=== PATIENT | female | born 1990 | race Caucasian/White ===

== ENCOUNTER 2021-06-19 06:59 | Inpatient (IN) | payer OTHER ==
[2021-06-19] MEDS ORDERED: fentaNYL 100 MCG/2 ML SDV EPIDUR PRN (08:00)
[2021-06-19] MEDS ORDERED: diphenhydrAMINE 50 MG/ML SDV IVPUSH PRN ×3 (08:00→14:33)
[2021-06-19] MEDS ORDERED: ePHEDrine 50 MG/ML SDV IVPUSH PRN ×2 (08:00→14:33)
[2021-06-19] MEDS ORDERED: Bupivacaine/fentaNYL/NS 100 ML Bag EPIDUR PRN (08:00)
--- NOTE | 2021-06-19 08:07 | PCM.PREANE ---
Preanesthetic Assessment - Procedure Proposed Procedure: epidural placement for labor analgesia - Anesthesia/Transfusion/Family Hx Anesthesia History: No Prior Anesthesia Family History of Anesthesia Reaction: No Transfusion History: No Prior Transfusion(s) Intubation History: Unknown - Review of Systems General: No Symptoms Pulmonary: No Symptoms Cardiovascular: No Symptoms Gastrointestinal: Other (heartburn complaints with , not on medications, she experineces when laying flat after a meal ) Neurological: No Symptoms, Other (swellling in left leg, varicose veins , swollen L.R, OB is aware, did an ultrasound in [place] that was negative and no change in the swelling or symptomology since that time ) Other: Reports: None - Physical Assessment NPO Status Date: 06/19/21 NPO Status Time: 06:30 Vital Signs: 76 hr 96% spo2 20 RR 115/68 Height: 1.78 m Weight: 92.986 kg ASA Class: 2 Mental Status: Alert & Oriented x3 Airway Class: Mallampati = 1 Dentition: Reports: Normal Dentition, Implants Thyro-Mental Finger Breadths: 3 Mouth Opening Finger Breadths: 5 ROM/Head Extension: Full Lungs: Clear to Auscultation, Normal Respiratory Effort Cardiovascular: Regular Rate, Regular Rhythm - Blood Blood Available: Yes Product(s) Available: PRBC (type and screen to be drawn ) - Acknowledgements Anesthesia Type Planned: Epidural Pt an Appropriate Candidate for the Planned Anesthesia: Yes Alternatives and Risks of Anesthesia Discussed w Pt/Guardian: Yes Pt/Guardian Understands and Agrees with Anesthesia Plan: Yes PreAnesthesia Questionnaire - CURRENT (IN HOUSE) MEDS Current Meds: Current Medications Diphenhydramine HCl (Diphenhydramine 50 Mg/Ml Sdv) 25 mg IVPUSH Q6H PRN PRN Reason: pruritis Ephedrine Sulfate (Ephedrine 50 Mg/Ml Sdv) 5 mg IVPUSH ASDIRECTED PRN PRN Reason: Hypotension Fentanyl (Fentanyl 100 Mcg/2 Ml Sdv) 100 mcg EPIDUR Q3H PRN PRN Reason: Pain Fentanyl/Bupivacaine HCl (Bupivacaine/Fentanyl/Ns 100 Ml Bag) 100 ml EPIDUR ASDIRECTED PRN PRN Reason: Pain
[2021-06-19] MEDS ORDERED: Lactated Ringers 1,000 ML IV SCH (09:30)
[2021-06-19] MEDS ORDERED: Ondansetron 4 MG/2 ML SDV IVPUSH PRN ×2 (09:39→16:34)
[2021-06-19] MEDS ORDERED: Morphine PF 10 MG/10 ML SDV ONE (09:41)
[2021-06-19] MEDS ORDERED: ceFAZolin 1 GM Vial ONE (09:42)
[2021-06-19] MEDS ORDERED: Lactated Ringers 1,000 ML ONE ×2 (09:47)
[2021-06-19] MEDS ORDERED: Oxytocin 10 Units/1 ML SDV ONE (09:47)
[2021-06-19] MEDS ORDERED: Ketorolac 30 MG/ML SDV ONE (09:47)
[2021-06-19] MEDS ORDERED: Ondansetron 4 MG/2 ML SDV ONE (09:47)
[2021-06-19] MEDS ORDERED: Bupivacaine 0.5% 30 ML SDV ONE (11:08)
[2021-06-19] MEDS ORDERED: Citric Acid/Sodium Citrate Solution 30 ML Cup PO ONE (11:30)
[2021-06-19] MEDS ORDERED: Metoclopramide 10 MG/2 ML SDV IVPUSH ONE (11:30)
[2021-06-19] MEDS ORDERED: Oxytocin/Lactated Ringers 10 UNIT/1,000 ML BAG IV SCH (12:00)
[2021-06-19] MEDS ORDERED: ceFAZolin 2 GM in Premix Bag 1 BAG IV ONE (12:00)
--- NOTE | 2021-06-19 12:57 | PCM.POSTAN ---
POST ANESTHESIA ASSESSMENT - MENTAL STATUS Mental Status: Alert - VITAL SIGNS Vital Signs: Last Vital Signs 1247 103/54 73 hr 16rr 98% on RA 97.1 Temp 36.6 C 06/19/21 09:21 Pulse Resp 14 06/19/21 09:21 BP 115/68 06/19/21 09:21 Pulse Ox 99 06/19/21 09:21 - RESPIRATORY Respiratory Status: Respiratory Rate WNL, Airway Patent, O2 Saturation Stable - CARDIOVASCULAR CV Status: Pulse Rate WNL, Blood Pressure Stable - GASTROINTESTINAL GI Status: No Symptoms - PAIN Pain Score: 0 - POST OP HYDRATION Hydration Status: Adequate & Stable
--- NOTE | 2021-06-19 13:00 | PCM.OPNOTE ---
- General Post-Op/Procedure Note Date of Surgery/Procedure: 06/19/21 Operative Procedure(s): primary Findings: viable female, 8/9 apgars at 1215. Breech. Pre Op Diagnosis: breech Post-Op Diagnosis: Same Anesthesia Technique: Spinal Primary Surgeon: Amy Freed Fluid Replacement, Intraop: 1,500 Output, Urine Amount: 100 EBL in mLs: 600 Complications: None Condition: Good Free Text/Narrative:: The patient was taken to the operating room where spinal anesthesia was dosed to surgical levels without difficulty. The patient was prepped and draped in the usual sterile fashion in the dorsal supine position with a leftward tilt. A Pfannenstiel skin incision was made with the scalpel and carried through to the underlying layer of fascia. The fascia was incised in the midline and extended laterally using Rodriguez scissors. Naomy clamps were used to elevate the superior aspect of the fascial incision, which was elevated, and the underlying rectus muscles were dissected off bluntly and using Rodriguez scissors. Attention was then turned to the inferior aspect of the fascial incision, which in similar fashion was grasped with Naomy clamps, elevated, and the underlying rectus muscles were dissected off bluntly and using the rodriguez. The rectus muscles were dissected in the midline. The peritoneum was entered bluntly; this incision was extended superiorly and inferiorly with good visualization of the bladder. The bladder blade was inserted. The vesicouterine peritoneum was identified and entered sharply using Metzenbaum scissors. This incision was extended laterally and the bladder flap was created digitally. The bladder blade was reinserted. The lower uterine segment was incised in a transverse fashion using the scalpel and with digital traction. Clear fluid was noted. The infant was subsequently delivered by normal breech maneuvers. The cord was clamped and cut. The was subsequently handed to the awaiting char puller whose presence had been requested.. The placenta was delivered spontaneously intact with a three-vessel cord noted. The uterus was exteriorized and cleared of all clots and debris. The uterine incision was repaired in 2 layers using 0 monocryl. Hemostasis was visualized. Hemostasis was visualized bilaterally. The uterus was returned to the abdomen. The uterine incision was reexamined and it was noted to be hemostatic. The pelvis was copiously irrigated. The fascia was closed with 1 PDS suture, and the skin was closed with 3-0 monocryl. Sponge, lap, and instrument counts were correct x2. The patient was stable at the completion of the procedure and was subsequently transferred to the recovery room in stable condition.
[2021-06-19] MEDS ORDERED: Naloxone 0.4 MG/ML SDV IVPUSH PRN (14:33)
[2021-06-19] MEDS ORDERED: Acetaminophen/oxyCODONE 325-5 MG Tab PO PRN (14:33)
[2021-06-19] MEDS ORDERED: Dextrose 5%-Lactated Ringers 1,000 ML IV SCH (14:33)
[2021-06-19] MEDS: Ketorolac 30 MG/ML SDV IVPUSH SCH (17:11)
[2021-06-19] MEDS ORDERED: Sodium Chloride 0.9% 10 ML Syringe FLUSH SCH (21:00)
[2021-06-19] MEDS: Acetaminophen/oxyCODONE 325-5 MG Tab PO PRN (21:35)
[2021-06-20] MEDS: Ketorolac 30 MG/ML SDV IVPUSH SCH ×2 (00:23→07:25)
[2021-06-20] MEDS: Acetaminophen/oxyCODONE 325-5 MG Tab PO PRN ×2 (05:04→12:40)
--- NOTE | 2021-06-20 07:21 | PCM.PNPP ---
- General Info Date of Service: 06/20/21 Functional Status: Reports: Pain Controlled - Review of Systems General: Reports: No Symptoms HEENT: Reports: No Symptoms Pulmonary: Reports: No Symptoms Cardiovascular: Reports: No Symptoms Gastrointestinal: Reports: No Symptoms Genitourinary: Reports: No Symptoms Musculoskeletal: Reports: No Symptoms Skin: Reports: No Symptoms Neurological: Reports: No Symptoms Psychiatric: Reports: No Symptoms - Patient Data Vital Signs - Most Recent: Last Vital Signs Temp 37.0 C 06/20/21 03:24 Pulse 66 06/20/21 03:24 Resp 16 06/20/21 04:53 BP 96/51 L 06/20/21 03:24 Pulse Ox 99 06/20/21 04:53 Weight - Most Recent: 92.986 kg I&O - Last 24 Hours: Intake & Output 06/19/21 06/20/21 06/20/21 22:59 06:59 14:59 Intake Total 1500 Output Total 1075 1750 Balance 425 -1750 Lab Results - Last 24 Hours: Laboratory Results - last 24 hr 06/19/21 06/19/21 06/19/21 Range/Units 08:00 09:37 09:37 WBC (3.98-10.04) K/mm3 RBC (3.98-5.22) M/mm3 Hgb (11.2-15.7) gm/dl Hct (34.1-44.9) % MCV (79.4-94.8) fl MCH (25.6-32.2) pg MCHC (32.2-35.5) g/dl RDW Std Deviation (36.4-46.3) fL Plt Count (182-369) K/mm3 MPV (9.4-12.3) fl Neut % (Auto) (34.0-71.1) % Lymph % (Auto) (19.3-51.7) % Fa[place]ner % (Auto) (4.7-12.5) % Eos % (Auto) (0.7-5.8) Baso % (Auto) (0.1-1.2) % Neut # (Auto) (1.56-6.13) K/mm3 Lymph # (Auto) (1.18-3.74) K/mm3 [place] # (Auto) (0.24-0.36) K/mm3 Eos # (Auto) (0.04-0.36) K/mm3 Baso # (Auto) (0.01-0.08) K/mm3 RPR Non-reactive (NONREACTIVE) SARS-CoV-2 RNA (VALENTÍN) Negative (NEGATIVE) Blood Type AB POSITIVE Gel Antibody Screen Negative 06/19/21 06/20/21 Range/Units 09:37 06:30 WBC 8.61 9.00 (3.98-10.04) K/mm3 RBC 3.70 L 3.09 L (3.98-5.22) M/mm3 Hgb 11.9 9.8 L D (11.2-15.7) gm/dl Hct 35.8 30.2 L (34.1-44.9) % MCV 96.8 H 97.7 H (79.4-94.8) fl MCH 32.2 31.7 (25.6-32.2) pg MCHC 33.2 32.5 (32.2-35.5) g/dl RDW Std Deviation 44.5 44.2 (36.4-46.3) fL Plt Count 265 268 (182-369) K/mm3 MPV 8.8 L 8.6 L (9.4-12.3) fl Neut % (Auto) 68.0 74.0 H (34.0-71.1) % Lymph % (Auto) 19.7 14.2 L (19.3-51.7) % [place] % (Auto) 9.5 9.3 (4.7-12.5) % Eos % (Auto) 2.3 2.1 (0.7-5.8) Baso % (Auto) 0.2 0.2 (0.1-1.2) % Neut # (Auto) 5.84 6.65 H (1.56-6.13) K/mm3 Lymph # (Auto) 1.70 1.28 (1.18-3.74) K/mm3 [place] # (Auto) 0.82 H 0.84 H (0.24-0.36) K/mm3 Eos # (Auto) 0.20 0.19 (0.04-0.36) K/mm3 Baso # (Auto) 0.02 0.02 (0.01-0.08) K/mm3 RPR (NONREACTIVE) SARS-CoV-2 RNA (VALENTÍN) (NEGATIVE) Blood Type Gel Antibody Screen Med Orders - Current: Current Medications Diphenhydramine HCl (Diphenhydramine 50 Mg/Ml Sdv) 25 mg IVPUSH Q6H PRN PRN Reason: Itching or Nausea Ephedrine Sulfate (Ephedrine 50 Mg/Ml Sdv) 5 mg IVPUSH SEECOMMENT PRN PRN Reason: Other Ibuprofen (Ibuprofen 600 Mg Tab) 600 mg PO Q6H PRN PRN Reason: mild pain or fever Naloxone HCl (Naloxone 0.4 Mg/Ml Sdv) 0.1 mg IVPUSH SEECOMMENT PRN PRN Reason: Respiratory Depression Ondansetron HCl (Ondansetron 4 Mg/2 Ml Sdv) 4 mg IVPUSH Q4HR PRN PRN Reason: Nausea/Vomiting Last Admin: 06/19/21 17:11 Dose: 4 mg Documented by: Oxycodone/Acetaminophen (Acetaminophen/Oxycodone 325-5 Mg Tab) 1 tab PO Q4H PRN PRN Reason: Pain (moderate 4-6) Last Admin: 06/20/21 05:04 Dose: 1 tab Documented by: Oxycodone/Acetaminophen (Acetaminophen/Oxycodone 325-5 Mg Tab) 2 tab PO Q4H PRN PRN Reason: Pain (severe 7-10) Discontinued Medications Bupivacaine HCl (Bupivacaine 0.5% 30 Ml Sdv) Confirm Administered Dose 30 ml .ROUTE .STK-MED ONE Stop: 06/19/21 11:09 Last Admin: 06/19/21 12:11 Dose: 17 ml Documented by: Cefazolin Sodium (Cefazolin 1 Gm Vial) Confirm Administered Dose 2 gm .ROUTE .STK-MED ONE Stop: 06/19/21 09:43 Citric Acid/Sodium Citrate (Citric Acid/Sodium Citrate Solution 30 Ml Cup) 30 ml PO ONETIME ONE Stop: 06/19/21 11:31 Last Admin: 06/19/21 11:18 Dose: 30 ml Documented by: Diphenhydramine HCl (Diphenhydramine 50 Mg/Ml Sdv) 25 mg IVPUSH Q6H PRN PRN Reason: pruritis Diphenhydramine HCl (Diphenhydramine 50 Mg/Ml Sdv) 25 mg IVPUSH Q6H PRN PRN Reason: Pruritis Ephedrine Sulfate (Ephedrine 50 Mg/Ml Sdv) 5 mg IVPUSH ASDIRECTED PRN PRN Reason: Hypotension Fentanyl (Fentanyl 100 Mcg/2 Ml Sdv) 100 mcg EPIDUR Q3H PRN PRN Reason: Pain Fentanyl/Bupivacaine HCl (Bupivacaine/Fentanyl/Ns 100 Ml Bag) 100 ml EPIDUR ASDIRECTED PRN PRN Reason: Pain Lactated Ringer's (Ringers, Lactated) 1,000 mls @ 125 mls/hr IV ASDIRECTED [facility] Last Admin: 06/19/21 11:18 Dose: 125 mls/hr Documented by: Oxytocin/Lactated Ringer's (Pitocin In Lr 10 Units/1,000 Ml) 10 unit in 1,000 mls @ 100 mls/hr IV ASDIRECTED [facility]; Protocol Cefazolin Sodium/Dextrose 2 gm (/ Premix) 50 mls @ 100 mls/hr IV ONETIME ONE Stop: 06/19/21 12:29 Last Admin: 06/19/21 19:13 Dose: Not Given Documented by: Lactated Ringer's (Ringers, Lactated) Confirm Administered Dose 1,000 mls @ as directed .ROUTE .STK-MED ONE Stop: 06/19/21 09:48 Lactated Ringer's (Ringers, Lactated) Confirm Administered Dose 1,000 mls @ as directed .ROUTE .STK-MED ONE Stop: 06/19/21 09:48 Dextrose/Lactated Ringer's (Dextrose 5%-Lactated Ringers) 1,000 mls @ 125 mls/hr IV ASDIRECTED [facility] Stop: 06/19/21 22:32 Last Admin: 06/19/21 17:22 Dose: 125 mls/hr Documented by: Ketorolac Tromethamine (Ketorolac 30 Mg/Ml Sdv) Confirm Administered Dose 30 mg .ROUTE .STK-MED ONE Stop: 06/19/21 09:48 Ketorolac Tromethamine (Ketorolac 30 Mg/Ml Sdv) 30 mg IVPUSH Q6H [facility] Stop: 06/20/21 06:01 Last Admin: 06/20/21 00:23 Dose: Not Given Documented by: Metoclopramide HCl (Metoclopramide 10 Mg/2 Ml Sdv) 10 mg IVPUSH ONETIME ONE Stop: 06/19/21 11:31 Last Admin: 06/19/21 11:19 Dose: 10 mg Documented by: Miscellaneous Medication (Phenylephrine Hcl In 0.9% Nacl 1 Mg/10 Ml Syringe) Confirm Administered Dose 1 mg .ROUTE .STK-MED ONE Stop: 06/19/21 12:06 Morphine Sulfate (Morphine Pf 10 Mg/10 Ml Sdv) Confirm Administered Dose 10 mg .ROUTE .STK-MED ONE Stop: 06/19/21 09:42 Ondansetron HCl (Ondansetron 4 Mg/2 Ml Sdv) 4 mg IVPUSH ONETIME PRN PRN Reason: Nausea/Vomiting Ondansetron HCl (Ondansetron 4 Mg/2 Ml Sdv) Confirm Administered Dose 4 mg .ROUTE .STK-MED ONE Stop: 06/19/21 09:48 Oxytocin (Oxytocin 10 Units/1 Ml Sdv) Confirm Administered Dose 10 unit .ROUTE .STK-MED ONE Stop: 06/19/21 09:48 Sodium Chloride (Sodium Chloride 0.9% 10 Ml Syringe) 10 ml FLUSH 0900,2100 ERIK - Infant Interaction Disposition, : at Bedside Support Person: - Recovery Exam Fundal Tone: Firm Fundal Level: 1 Fingerbreadths Below Umbilicus Fundal Placement: Midline Lochia Amount: Scant Lochia Color: Rubra/Red Perineum Description: Intact, Minimal Bruising/Swelling Episiotomy/Laceration: None Bladder Status: Indwelling Catheter in Place Urinary Elimination: Indwelling Catheter - Exam General: Alert, Oriented HEENT: Pupils Equal Neck: Supple Lungs: Clear to Auscultation, Normal Respiratory Effort Cardiovascular: Regular Rate, Regular Rhythm GI/Abdominal Exam: Normal Bowel Sounds, Soft, Non-Tender, No Organomegaly, No Distention, No Abnormal Bruit, No Mass, Pelvis Stable Extremities: Normal Inspection, Normal Range of Motion, Non-Tender, No Pedal Edema, Normal Capillary Refill Skin: Warm, Dry, Intact Wound/Incisions: Healing Well Neurological: No New Focal Deficit Psy/Mental Status: Alert - Problem List Review Problem List Initiated/Reviewed/Updated: Yes - My Orders Last 24 Hours: My Active Orders 06/19/21 09:21 Resuscitation Status Routine 06/19/21 14:33 Acetaminophen/oxyCODONE [Percocet 325-5 MG] 1 tab PO Q4H PRN Acetaminophen/oxyCODONE [Percocet 325-5 MG] 2 tab PO Q4H PRN Naloxone [Narcan] 0.1 mg IVPUSH SEECOMMENT PRN diphenhydrAMINE [Benadryl] 25 mg IVPUSH Q6H PRN ePHEDrine [ePHEDrine sulfate] 5 mg IVPUSH SEECOMMENT PRN 06/19/21 14:33 Communication Order [RC] PER UNIT ROUTINE Communication Order [RC] PER UNIT ROUTINE Communication Order [RC] PER UNIT ROUTINE Notify Provider Intake and Out [RC] ASDIRECTED Vital Signs [RC] 03,19,15,21 Assess Lochia [WOMSER] Per Unit Routine Assess Uterine Involution [WOMSER] Per Unit Routine Medication Administration Instruction [OM.PC] Routine 06/19/21 Dinner Regular Diet [DIET] 06/20/21 12:00 Ibuprofen [Motrin] 600 mg PO Q6H PRN 06/20/21 13:01 Urinary Catheter Removal [RC] Per Unit Routine - Assessment Assessment:: POD1 Doing great Home tomorrow. Rx sent yesterday.
--- NOTE | 2021-06-20 08:35 | PCM.DCSUM1 ---
Discharge Summary - Hospital Course Brief History: Admitted for induction, breech, primary without complications. Discharge POD1 at patient request as doing well and holiday. Diagnosis: Stroke: No - Discharge Data Discharge Date: 06/20/21 Discharge Disposition: Home, Self-Care 01 Condition: Good - Referral to Home Health Primary Care Physician: PCP None - Patient Summary/Data Operative Procedure(s) Performed: primary - Patient Instructions Diet: Usual Diet as Tolerated Activity: No Strenuous Activities Activity, Other: pelvic rest Driving: Do Not Drive Notify Provider of: Fever, Increased Pain, Swelling and Redness, Drainage, Nausea and/or Vomiting - Discharge Plan *PRESCRIPTION DRUG MONITORING PROGRAM REVIEWED*: No *COPY OF PRESCRIPTION DRUG MONITORING REPORT IN PATIENT HIMANSHU: No Home Medications: Home Meds Mv-Mn/Iron/FA/Herbal/Digestive [ One Tablet] 1 tab PO DAILY 06/19/21 [History] Referrals: Amy Freed MD [Physician] - (2 weeks) - Discharge Summary/Plan Comment DC Time >30 min.: No Total # of Minutes for Discharge Time: 15 - General Info Date of Service: 06/20/21 Functional Status: Reports: Pain Controlled - Review of Systems General: Reports: No Symptoms HEENT: Reports: No Symptoms Pulmonary: Reports: No Symptoms Cardiovascular: Reports: No Symptoms Gastrointestinal: Reports: No Symptoms Genitourinary: Reports: No Symptoms Musculoskeletal: Reports: No Symptoms Skin: Reports: No Symptoms Neurological: Reports: No Symptoms Psychiatric: Reports: No Symptoms - Patient Data Vitals - Most Recent: Last Vital Signs Temp 37.0 C 06/20/21 03:24 Pulse 66 06/20/21 03:24 Resp 16 06/20/21 04:53 BP 96/51 L 06/20/21 03:24 Pulse Ox 99 06/20/21 04:53 Weight - Most Recent: 92.986 kg I&O - Last 24 hours: Intake & Output 06/19/21 06/20/21 06/20/21 22:59 06:59 14:59 Intake Total 1500 Output Total 1075 1750 Balance 425 -1750 Lab Results - Last 24 hrs: Laboratory Results - last 24 hr 06/19/21 06/19/21 06/19/21 Range/Units 08:00 09:37 09:37 WBC (3.98-10.04) K/mm3 RBC (3.98-5.22) M/mm3 Hgb (11.2-15.7) gm/dl Hct (34.1-44.9) % MCV (79.4-94.8) fl MCH (25.6-32.2) pg MCHC (32.2-35.5) g/dl RDW Std Deviation (36.4-46.3) fL Plt Count (182-369) K/mm3 MPV (9.4-12.3) fl Neut % (Auto) (34.0-71.1) % Lymph % (Auto) (19.3-51.7) % Moore % (Auto) (4.7-12.5) % Eos % (Auto) (0.7-5.8) Baso % (Auto) (0.1-1.2) % Neut # (Auto) (1.56-6.13) K/mm3 Lymph # (Auto) (1.18-3.74) K/mm3 Moore # (Auto) (0.24-0.36) K/mm3 Eos # (Auto) (0.04-0.36) K/mm3 Baso # (Auto) (0.01-0.08) K/mm3 RPR Non-reactive (NONREACTIVE) SARS-CoV-2 RNA (VALENTÍN) Negative (NEGATIVE) Blood Type AB POSITIVE Gel Antibody Screen Negative 06/19/21 06/20/21 Range/Units 09:37 06:30 WBC 8.61 9.00 (3.98-10.04) K/mm3 RBC 3.70 L 3.09 L (3.98-5.22) M/mm3 Hgb 11.9 9.8 L D (11.2-15.7) gm/dl Hct 35.8 30.2 L (34.1-44.9) % MCV 96.8 H 97.7 H (79.4-94.8) fl MCH 32.2 31.7 (25.6-32.2) pg MCHC 33.2 32.5 (32.2-35.5) g/dl RDW Std Deviation 44.5 44.2 (36.4-46.3) fL Plt Count 265 268 (182-369) K/mm3 MPV 8.8 L 8.6 L (9.4-12.3) fl Neut % (Auto) 68.0 74.0 H (34.0-71.1) % Lymph % (Auto) 19.7 14.2 L (19.3-51.7) % Moore % (Auto) 9.5 9.3 (4.7-12.5) % Eos % (Auto) 2.3 2.1 (0.7-5.8) Baso % (Auto) 0.2 0.2 (0.1-1.2) % Neut # (Auto) 5.84 6.65 H (1.56-6.13) K/mm3 Lymph # (Auto) 1.70 1.28 (1.18-3.74) K/mm3 Moore # (Auto) 0.82 H 0.84 H (0.24-0.36) K/mm3 Eos # (Auto) 0.20 0.19 (0.04-0.36) K/mm3 Baso # (Auto) 0.02 0.02 (0.01-0.08) K/mm3 RPR (NONREACTIVE) SARS-CoV-2 RNA (VALENTÍN) (NEGATIVE) Blood Type Gel Antibody Screen Med Orders - Current: Current Medications Diphenhydramine HCl (Diphenhydramine 50 Mg/Ml Sdv) 25 mg IVPUSH Q6H PRN PRN Reason: Itching or Nausea Ephedrine Sulfate (Ephedrine 50 Mg/Ml Sdv) 5 mg IVPUSH SEECOMMENT PRN PRN Reason: Other Ibuprofen (Ibuprofen 600 Mg Tab) 600 mg PO Q4H PRN PRN Reason: Pain Naloxone HCl (Naloxone 0.4 Mg/Ml Sdv) 0.1 mg IVPUSH SEECOMMENT PRN PRN Reason: Respiratory Depression Ondansetron HCl (Ondansetron 4 Mg/2 Ml Sdv) 4 mg IVPUSH Q4HR PRN PRN Reason: Nausea/Vomiting Last Admin: 06/19/21 17:11 Dose: 4 mg Documented by: Oxycodone/Acetaminophen (Acetaminophen/Oxycodone 325-5 Mg Tab) 1 tab PO Q4H PRN PRN Reason: Pain (moderate 4-6) Last Admin: 06/20/21 05:04 Dose: 1 tab Documented by: Oxycodone/Acetaminophen (Acetaminophen/Oxycodone 325-5 Mg Tab) 2 tab PO Q4H PRN PRN Reason: Pain (severe 7-10) Discontinued Medications Bupivacaine HCl (Bupivacaine 0.5% 30 Ml Sdv) Confirm Administered Dose 30 ml .ROUTE .STK-MED ONE Stop: 06/19/21 11:09 Last Admin: 06/19/21 12:11 Dose: 17 ml Documented by: Cefazolin Sodium (Cefazolin 1 Gm Vial) Confirm Administered Dose 2 gm .ROUTE .STK-MED ONE Stop: 06/19/21 09:43 Citric Acid/Sodium Citrate (Citric Acid/Sodium Citrate Solution 30 Ml Cup) 30 ml PO ONETIME ONE Stop: 06/19/21 11:31 Last Admin: 06/19/21 11:18 Dose: 30 ml Documented by: Diphenhydramine HCl (Diphenhydramine 50 Mg/Ml Sdv) 25 mg IVPUSH Q6H PRN PRN Reason: pruritis Diphenhydramine HCl (Diphenhydramine 50 Mg/Ml Sdv) 25 mg IVPUSH Q6H PRN PRN Reason: Pruritis Ephedrine Sulfate (Ephedrine 50 Mg/Ml Sdv) 5 mg IVPUSH ASDIRECTED PRN PRN Reason: Hypotension Fentanyl (Fentanyl 100 Mcg/2 Ml Sdv) 100 mcg EPIDUR Q3H PRN PRN Reason: Pain Fentanyl/Bupivacaine HCl (Bupivacaine/Fentanyl/Ns 100 Ml Bag) 100 ml EPIDUR ASDIRECTED PRN PRN Reason: Pain Lactated Ringer's (Ringers, Lactated) 1,000 mls @ 125 mls/hr IV ASDIRECTED [facility] Last Admin: 06/19/21 11:18 Dose: 125 mls/hr Documented by: Oxytocin/Lactated Ringer's (Pitocin In Lr 10 Units/1,000 Ml) 10 unit in 1,000 mls @ 100 mls/hr IV ASDIRECTED [facility]; Protocol Cefazolin Sodium/Dextrose 2 gm (/ Premix) 50 mls @ 100 mls/hr IV ONETIME ONE Stop: 06/19/21 12:29 Last Admin: 06/19/21 19:13 Dose: Not Given Documented by: Lactated Ringer's (Ringers, Lactated) Confirm Administered Dose 1,000 mls @ as directed .ROUTE .STK-MED ONE Stop: 06/19/21 09:48 Lactated Ringer's (Ringers, Lactated) Confirm Administered Dose 1,000 mls @ as directed .ROUTE .STK-MED ONE Stop: 06/19/21 09:48 Dextrose/Lactated Ringer's (Dextrose 5%-Lactated Ringers) 1,000 mls @ 125 mls/hr IV ASDIRECTED [facility] Stop: 06/19/21 22:32 Last Admin: 06/19/21 17:22 Dose: 125 mls/hr Documented by: Ibuprofen (Ibuprofen 600 Mg Tab) 600 mg PO Q6H PRN PRN Reason: mild pain or fever Ketorolac Tromethamine (Ketorolac 30 Mg/Ml Sdv) Confirm Administered Dose 30 mg .ROUTE .STK-MED ONE Stop: 06/19/21 09:48 Ketorolac Tromethamine (Ketorolac 30 Mg/Ml Sdv) 30 mg IVPUSH Q6H [facility] Stop: 06/20/21 06:01 Last Admin: 06/20/21 07:25 Dose: Not Given Documented by: Metoclopramide HCl (Metoclopramide 10 Mg/2 Ml Sdv) 10 mg IVPUSH ONETIME ONE Stop: 06/19/21 11:31 Last Admin: 06/19/21 11:19 Dose: 10 mg Documented by: Miscellaneous Medication (Phenylephrine Hcl In 0.9% Nacl 1 Mg/10 Ml Syringe) Confirm Administered Dose 1 mg .ROUTE .STK-MED ONE Stop: 06/19/21 12:06 Morphine Sulfate (Morphine Pf 10 Mg/10 Ml Sdv) Confirm Administered Dose 10 mg .ROUTE .STK-MED ONE Stop: 06/19/21 09:42 Ondansetron HCl (Ondansetron 4 Mg/2 Ml Sdv) 4 mg IVPUSH ONETIME PRN PRN Reason: Nausea/Vomiting Ondansetron HCl (Ondansetron 4 Mg/2 Ml Sdv) Confirm Administered Dose 4 mg .ROUTE .STK-MED ONE Stop: 06/19/21 09:48 Oxytocin (Oxytocin 10 Units/1 Ml Sdv) Confirm Administered Dose 10 unit .ROUTE .STK-MED ONE Stop: 06/19/21 09:48 Sodium Chloride (Sodium Chloride 0.9% 10 Ml Syringe) 10 ml FLUSH 0900,2100 [facility] - Exam General: Reports: Alert, Oriented HEENT: Reports: Pupils Equal, Pupils Reactive, EOMI, Mucous Membr. Moist/[place] Neck: Reports: Supple Lungs: Reports: Clear to Auscultation, Normal Respiratory Effort Cardiovascular: Reports: Regular Rate, Regular Rhythm GI/Abdominal Exam: Normal Bowel Sounds, Soft, Non-Tender, No Organomegaly, No Distention, No Abnormal Bruit, No Mass, Pelvis Stable Rectal (Female) Exam: Normal Exam, Normal Rectal Tone Back Exam: Reports: Normal Inspection, Full Range of Motion Extremities: Normal Inspection, Normal Range of Motion, Non-Tender, No Pedal Edema, Normal Capillary Refill Skin: Reports: Warm, Dry, Intact Wound/Incisions: Reports: Healing Well Neurological: Reports: No New Focal Deficit Psy/Mental Status: Reports: Alert, Normal Affect, Normal Mood
--- NOTE | 2021-06-20 09:19 | PCM48HPAN ---
Post Anesthesia Note - EVALUATION WITHIN 48HRS OF ANESTHETIC Vital Signs in Normal Range: Yes Patient Participated in Evaluation: Yes Respiratory Function Stable: Yes Airway Patent: Yes Cardiovascular Function Stable: Yes Hydration Status Stable: Yes Pain Control Satisfactory: Yes Nausea and Vomiting Control Satisfactory: Yes Mental Status Recovered: Yes Vital Signs: Last Vital Signs Temp 98.6 F 06/20/21 03:24 Pulse 66 06/20/21 03:24 Resp 16 06/20/21 04:53 BP 96/51 L 06/20/21 03:24 Pulse Ox 99 06/20/21 04:53 - COMMENTS/OBSERVATIONS Free Text/Narrative:: No apparent anesthesia complications noted
[2021-06-20] MEDS: Ibuprofen 600 MG Tab PO PRN ×2 (09:24→16:03)
[2021-06-20] MEDS ORDERED: Ibuprofen 600 MG Tab PO PRN (12:00)
[2021-06-20] MEDS ORDERED: Docusate Sodium 100 MG Cap PO SCH (12:45)
== END 2021-06-20 16:15 | disposition home or self-care (01) | DRG 788 ==
LOC: JD.OB 06:59 → OBSVTOIN 13:00 → JD.OB 18:25
PROVIDERS: ADMIT Obstetrics & Gynecology; ATTEND Obstetrics & Gynecology
PROC: 10D00Z1 Extraction of Products of Conception, Low, Open Approach (ICD-10-PCS; principal; 2021-06-19)
DX: O32.1XX0 Maternal care for breech presentation, not applicable or unspecified (principal); Z37.0 Single live birth; Z20.822 Contact with and (suspected) exposure to COVID-19; Z3A.39 39 weeks gestation of pregnancy
CPT/HCPCS: 01961; 36415; 59025; 85025; 86592; 86850; 86900; 86901; A9270-GY; J0690; J1885; J2270; J2370; J2405; J2590; J2765; J3490; J7120; J7121; U0002

== ENCOUNTER 2021-08-03 20:28 | Observation (INO) | payer OTHER ==
[2021-08-03] MEDS ORDERED: Acetaminophen 325 MG Tab PO PRN (22:22)
[2021-08-03] MEDS ORDERED: Ibuprofen 600 MG Tab PO PRN (22:22)
[2021-08-03] MEDS ORDERED: Sodium Chloride 0.9% 10 ML Syringe FLUSH PRN (22:22)
[2021-08-03] MEDS ORDERED: Promethazine 25 MG Tab PO PRN (22:32)
[2021-08-03] MEDS ORDERED: Ketorolac 30 MG/ML SDV IVPUSH ONE (22:43)
[2021-08-03] MEDS: Sodium Chloride 0.9% 1,000 ML IV SCH (23:30)
[2021-08-03] MEDS ORDERED: Water For Injection, Sterile 10 ML ONE (23:52)
[2021-08-04] MEDS: Ondansetron 4 MG/2 ML SDV IVPUSH PRN ×2 (00:03→06:02)
[2021-08-04] MEDS ORDERED: Ibuprofen 600 MG Tab PO PRN (05:00)
[2021-08-04] MEDS: Sodium Chloride 0.9% 1,000 ML IV SCH (06:04)
== END 2021-08-04 08:25 | disposition home or self-care (01) ==
LOC: JD.ED 20:28 → JD.OB 22:22
PROVIDERS: ADMIT Obstetrics & Gynecology; ATTEND Obstetrics & Gynecology
DX: N93.9 Abnormal uterine and vaginal bleeding, unspecified (principal); Z79.899 Other long term (current) drug therapy; Z98.890 Other specified postprocedural states
CPT/HCPCS: 36415; 85025; 96374; 96375; 96376; 99284; A9270; G0378; J1410; J1885; J2405; J7030; 99285

== ENCOUNTER 2022-03-14 22:13 | Emergency (ER) | payer OTHER ==
[2022-03-14] MEDS ORDERED: Sodium Chloride 0.9% 1,000 ML IV ONE (22:55)
[2022-03-14] MEDS ORDERED: Ketorolac 30 MG/ML SDV IVPUSH STA (23:29)
[2022-03-15 00:03] LABS: ESTIMATED GFR 51 mL/min (>60)
[2022-03-15] MEDS ORDERED: cefTRIAXone 2 GM in Sodium Chloride 0.9% 100 ML IV STA (00:05)
[2022-03-15] MEDS ORDERED: Vancomycin 1.5 GM in Sodium Chloride 0.9% 500 ML IV STA (00:08)
[2022-03-15] MEDS ORDERED: Potassium Chloride 20 MEQ Tab.ER PO ONE (00:16)
[2022-03-15 00:17] LABS: CORONAVIRUS COVID-19 NAA NEGATIVE (NEGATIVE)
[2022-03-15] MEDS ORDERED: HYDROmorphone 0.5 MG/0.5 ML Syringe IVPUSH ONE (00:29)
[2022-03-15] MEDS ORDERED: Sodium Chloride 0.9% 1,000 ML IV ONE ×2 (00:54→02:33)
[2022-03-15] MEDS ORDERED: Magnesium Sulfate/Water 2 GM in Premix Bag 1 BAG IV ONE (00:56)
[2022-03-15] MEDS ORDERED: Ondansetron 4 MG/2 ML SDV IVPUSH ONE (02:11)
[2022-03-15] MEDS ORDERED: Ketorolac 30 MG/ML SDV IVPUSH STA (04:11)
[2022-03-15] MEDS ORDERED: Sodium Chloride 0.9% 1,000 ML IV SCH (04:15)
[2022-03-15] MEDS ORDERED: Norepinephrine 4 MG in Dextrose 5% in Water 246 ML IV SCH ×2 (04:15)
[2022-03-15 04:44] LABS: ESTIMATED GFR 47 mL/min (>60)
== END 2022-03-15 05:17 ==
LOC: JD.ED 22:13
DX: A41.9 Sepsis, unspecified organism (principal); R65.21 Severe sepsis with septic shock; M00.9 Pyogenic arthritis, unspecified; E87.2 Acidosis; E87.6 Hypokalemia; E83.42 Hypomagnesemia; N28.9 Disorder of kidney and ureter, unspecified; R73.9 Hyperglycemia, unspecified; D72.829 Elevated white blood cell count, unspecified; F10.129 Alcohol abuse with intoxication, unspecified; Y90.0 Blood alcohol level of less than 20 mg/100 ml; Z98.890 Other specified postprocedural states; Z20.822 Contact with and (suspected) exposure to COVID-19
CPT/HCPCS: 0240U; 36415; 73080; 80048; 80053; 80306; 80307; 83605; 83735; 85007; 85027; 85379; 86140; 87040; 96361; 96365; 96366; 96367; 96368; 96375; 96376; 99285; A9270; J0696; J1170; J1885; J2405; J3370; J3475; J7030; J7040; J7060